=== PATIENT | male | born 1985 | race Caucasian/White ===

== ENCOUNTER 2023-04-15 04:08 | Emergency (ER) | payer OTHER ==
[2023-04-15] MEDS ORDERED: Tetracaine HCl/PF 0.5% 4 ML Bottle EYEBOTH ONE (04:23)
[2023-04-15] MEDS ORDERED: Fluorescein 1 MG Ophth Strip EYELF ONE (04:31)
== END 2023-04-15 04:50 | disposition home or self-care (01) ==
LOC: JP.ED 04:08
DX: S05.02XA Injury of conjunctiva and corneal abrasion without foreign body, left eye, initial encounter (principal); F17.210 Nicotine dependence, cigarettes, uncomplicated; W20.8XXA Other cause of strike by thrown, projected or falling object, initial encounter; Y99.0 Civilian activity done for income or pay
CPT/HCPCS: 99283